=== PATIENT | female | born 1970 | race African-American/Black ===

== ENCOUNTER → 2017-12-24 | Outpatient (CLI) | payer BC ==
[2017-12-24 12:25] LABS: ABSOLUTE EOSINOPHILS # (AUTO) 0.1 10^3/uL (0.0-0.6); ABSOLUTE LYMPHOCYTES (AUTO) 1.5 10^3/uL (0.5-4.7); ABSOLUTE MONOCYTES (AUTO) 0.4 10^3/uL (0.1-1.4); ABSOLUTE NEUT (AUTO) 2.7 10^3/uL (1.7-8.2); BASOPHILS % (AUTO) 0.9 % (0-2); EOSINOPHILS % (AUTO) 2.4 % (0-6); HEMATOCRIT 35.1 % (36.0-47.0); HEMOGLOBIN 11.5 g/dL (12.0-15.5); LYMPHOCYTES % (AUTO) 31.4 % (13-45); MEAN CORPUSCULAR HGB CONC 32.7 g/dL (32.0-36.0); MEAN CORPUSCULAR VOLUME 89 fl (80-97); MONOCYTES % (AUTO) 7.9 % (3-13); PLATELET COUNT 337 10^3/uL (150-450); RED BLOOD COUNT 3.95 10^6/uL (3.72-5.28); RED CELL DISTRIBUTION WIDTH 12.6 % (11.5-14.0); SEGMENTED NEUTROPHILS % (AUTO) 57.4 % (42-78); TOTAL CELLS COUNTED % (AUTO) 100 %; WHITE BLOOD COUNT 4.7 10^3/uL (4.0-10.5)
[2017-12-24 12:43] LABS: ALANINE AMINOTRANSFERASE 24 U/L (9-52); ALBUMIN 4.7 g/dL (3.5-5.0); ALKALINE PHOSPHATASE 48 U/L (38-126); ANION GAP 12 (5-19); ASPARTATE AMINO TRANSFERASE 25 U/L (14-36); BILIRUBIN,DIRECT 0.1 mg/dL (0.0-0.4); BILIRUBIN,TOTAL 0.3 mg/dL (0.2-1.3); BLOOD UREA NITROGEN 13 mg/dL (7-20); CARBON DIOXIDE 26 mmol/L (22-30); CHLORIDE 104 mmol/L (98-107); GLUCOSE 82 mg/dL (75-110); IRON(TIBC) 142.1 ug/dL (37-170); POTASSIUM 4.4 mmol/L (3.6-5.0); SODIUM 141.5 mmol/L (137-145); TOTAL PROTEIN 7.1 g/dL (6.3-8.2)
== END ==
LOC: OD 11:32
PROVIDERS: ATTEND Specialist
DX: D64.9 Anemia, unspecified (principal); D25.9 Leiomyoma of uterus, unspecified; E11.9 Type 2 diabetes mellitus without complications
CPT/HCPCS: 36415; 80053; 83540; 83550; 84443; 85025

== ENCOUNTER → 2019-08-16 | Day surgery (SDC) | payer BC ==
[2019-08-04 09:01] LABS: HEMATOCRIT 34.4 % (36.0-47.0); HEMOGLOBIN 11.2 g/dL (12.0-15.5); MEAN CORPUSCULAR HEMOGLOBIN 29.1 pg (27.0-33.4); MEAN CORPUSCULAR HGB CONC 32.5 g/dL (32.0-36.0); MEAN CORPUSCULAR VOLUME 90 fl (80-97); PLATELET COUNT 313 10^3/uL (150-450); RED BLOOD COUNT 3.84 10^6/uL (3.72-5.28); RED CELL DISTRIBUTION WIDTH 12.9 % (11.5-14.0); WHITE BLOOD COUNT 3.8 10^3/uL (4.0-10.5)
[2019-08-04 09:06] LABS: APPEARANCE,URINE CLEAR; BILIRUBIN,URINE NEGATIVE (NEGATIVE); COLOR,URINE STRAW; GLUCOSE, URINE NEGATIVE (NEGATIVE); KETONES,URINE NEGATIVE (NEGATIVE); LEUKOCYTE ESTERASE,URINE NEGATIVE (NEGATIVE); NITRITE,URINE NEGATIVE (NEGATIVE); PROTEIN,URINE NEGATIVE (NEGATIVE); URINE SPECIFIC GRAVITY 1.008; UROBILINOGEN,URINE NEGATIVE mg/dL (<2.0)
--- NOTE | 2019-08-04 09:16 | EKG REPORT ---
SEVERITY:- NORMAL ECG - SINUS RHYTHM : Confirmed by: Kasia Christensen 04-Aug-2019 09:15:58
[2019-08-04 09:26] LABS: ANION GAP 8 (5-19); BLOOD UREA NITROGEN 14 mg/dL (7-20); CALCIUM 9.8 mg/dL (8.4-10.2); CARBON DIOXIDE 30 mmol/L (22-30); CHLORIDE 102 mmol/L (98-107); POTASSIUM 4.4 mmol/L (3.6-5.0)
[2019-08-04 09:32] LABS: GLUCOSE 61 mg/dL (75-110)
[~2019-08-16] MED LIST: ACETAMINOPHEN 1,000 MG/100 ML RTUPB IV ONE; BUPIVACAINE INJ/PF LIPOSOME/PF 266 MG/20 ML SDV ONE; CLINDAMYCIN 600 MG/D5W RTU 600 MG/50 ML RTUPB IV ONE; CLINDAMYCIN 600 MG/D5W RTU 600 MG/50 ML RTUPB IV PRN; DEXAMETHASONE SOD PHOSPHATE INJ 4 MG/1 ML VIAL ONE; DIPHENHYDRAMINE HCL 50 MG/ML VIAL IV PRN; FAMOTIDINE INJ/PF 20 MG/2 ML SDV IV ONE; FENTANYL CITRATE INJ/PF 100 MCG/2 ML AMPUL IV PRN; FENTANYL CITRATE INJ/PF 100 MCG/2 ML AMPUL ONE; GENTAMICIN SULFATE 60 MG in DEXTROSE 5%-WATER 100 ML IV PRN; GLYCOPYRROLATE 1 MG/5 ML VIAL ONE; HYDROMORPHONE HCL INJ/PF 2 MG/ML AMPULE ONE; IBUPROFEN 800 MG TABLET PO SCH; KETOROLAC TROMETHAMINE 60 MG/2 ML SDV ONE; LIDOCAINE 2% INJ (20 MG/ML) 20 ML MDV ONE; MEPERIDINE HCL/PF INJ 25 MG/1 ML DISP.SYRIN IV PRN; MIDAZOLAM 2 MG/2 ML INJ ONE; MORPHINE INJ 4 MG DOSE (EDIT ROUTE) INJ PRN; MORPHINE INJ 6 MG DOSE (EDIT ROUTE) INJ PRN; MORPHINE INJ 8 MG DOSE IM PRN; MORPHINE SULFATE 10 MG/ML INJ IV PRN; ONDANSETRON HCL INJ/PF 4 MG/2 ML SDV IV PRN; ONDANSETRON HCL INJ/PF 4 MG/2 ML SDV ONE; OXYCODONE-ACETAMINOPHEN 5-325 MG TABLET PO PRN; PROMETHAZINE HCL INJ 25 MG/1 ML VIAL IM PRN; PROMETHAZINE HCL INJ 25 MG/1 ML VIAL ONE; PROPOFOL INJ 200 MG/20 ML VIAL IV ONE; ROCURONIUM BROMIDE INJ 50 MG/5 ML VIAL IV ONE; SCOPOLAMINE HYDROBROMIDE 1.5 MG PATCH.TD72 ONE; SUCCINYLCHOLINE CHLORIDE INJ 200 MG/10 ML VIAL ONE
--- NOTE | 2019-08-16 08:46 | Operative Report ---
Operative Report DATE OF SURGERY: 08/16/19 PREOPERATIVE DIAGNOSIS: Uterine leiomyoma POSTOPERATIVE DIAGNOSIS: Same OPERATION: Supracervical hysterectomy bilateral salpingectomy SURGEON: CORRY WESLEY ANESTHESIA: GA TISSUE REMOVED OR ALTERED: Uterus and tubes COMPLICATIONS: None ESTIMATED BLOOD LOSS: 75 mL's INTRAOPERATIVE FINDINGS: 18 to 20 weeks size uterus normal ovaries left corpus luteum cyst normal appendix cervix and left in situ PROCEDURE: Indication for procedure the patient has symptomatic uterine leiomyoma and desire to attempt a definitive therapy. The usual risks of bleeding infection and anesthesia been discussed the patient understood. Patient also understands her risk of damage to other organs including bowel and bladder Procedure patient taken operating room and after surgical timeout performed a EUA performed was prepped and draped in a usual manner for a hysterectomy through midline incision. Bladder was drained sterile technique and abdomen entered through a midline incision extending to the subcutis fat and fascia the peritoneum was then without difficulty and the uterus was exteriorized in the operative field. The utero-ovarian ligament was identified and cauterized using LigaSure advanced device bilaterally after the round ligaments of been identified and bladder flap developed and reflected inferiorly. The tubes were removed from the mesosalpinx and continued on with the specimen. Advancement of the dissection continued to have the uterine vessels which were cauterized and free tied this level of the cervix was noted to be well down into the pelvis proper there is elected to proceed with soup supracervical hysterectomy. The cervix was amputated and oversewn with #1 chromic catgut as is usual throughout the case. This aspect of the procedure good hemostasis was noted bladder was well out of the operative field ureters were noted to be well out of the operative field abdomen was copiously irrigated and Exparel was used for total of 20 mL's in the subfascial area. The fascia was then closed with double-stranded PDS suture and the skin approximated skin ki. The completion of procedure all sponge needle instrument counts were correct the patient was taken recovery room stable condition
[2019-08-16] MEDS: RINGERS SOLUTION,LACTATED 1,000 ML IV PRN ×2 (12:59→23:03)
[2019-08-16] MEDS: IBUPROFEN 800 MG TABLET PO SCH ×2 (15:00→21:30)
[2019-08-17] MEDS: IBUPROFEN 800 MG TABLET PO SCH (05:10)
[2019-08-17 08:20] VITALS: BP 111/62
[2019-08-17 08:26] LABS: HEMATOCRIT 33.6 % (36.0-47.0); MEAN CORPUSCULAR HEMOGLOBIN 29.3 pg (27.0-33.4); MEAN CORPUSCULAR HGB CONC 32.7 g/dL (32.0-36.0); MEAN CORPUSCULAR VOLUME 90 fl (80-97); PLATELET COUNT 296 10^3/uL (150-450); RED BLOOD COUNT 3.75 10^6/uL (3.72-5.28); RED CELL DISTRIBUTION WIDTH 12.9 % (11.5-14.0); WHITE BLOOD COUNT 9.4 10^3/uL (4.0-10.5)
== END ==
LOC: INTOOBSV 05:23 → UNDOADMOB 05:23 → INOR 05:23 → EDSTATUS 07:15 → INOR 10:10 → 2S 10:10 → ASU 9 10:47 → UNDODISOB 08-17 08:35
PROVIDERS: ATTEND Specialist
DX: D25.1 Intramural leiomyoma of uterus (principal); D25.2 Subserosal leiomyoma of uterus; N80.0 Endometriosis of uterus; D64.9 Anemia, unspecified
CPT/HCPCS: 93005; 86900; 86901; 36415 ×3; 86850; 85027 ×2; 81025; 80048; 81001; 88307 ×2; 94799; 93010; 00840; 58180; J2250; J3490 ×3; J1100; J1885; J1580; J1170; J0330; J2405; J7060; J7120; J2704; S0028; J0131; C9290; 840; J2550; J3010

== ENCOUNTER → 2020-09-04 | Outpatient (CLI) | payer BC ==
--- NOTE | 2020-09-04 11:21 | RADIOLOGY REPORT (SQ) ---
EXAM DESCRIPTION: CT ABD/PELVIS NO ORAL OR IV IMAGES COMPLETED DATE/TIME: 09/04/2020 8:11 am REASON FOR STUDY: URINARY TRACT INFECTION, SITE NOT SPECIFIED N39.0 URINARY TRACT INFECTION, SITE N OT SPECIFIED COMPARISON: Pelvic ultrasound 05/30/2019 TECHNIQUE: CT scan of the abdomen and pelvis performed without intravenous or oral contrast. Images reviewed with lung, soft tissue, and bone windows. Reconstructed coronal and sagittal MPR images revi ewed. All images stored on PACS. All CT scanners at this facility use dose modulation, iterative reconstruction, and/or weight based d osing when appropriate to reduce radiation dose to as low as reasonably achievable (ALARA). [facility]: Dose Right [facility]: CareDose [facility]: Dose Right [facility]: Teradose 4D [facility]: Smart SampalRx RADIATION DOSE: CT Rad equipment meets quality standard of care and radiation dose reduction techniq ues were employed. CTDIvol: 5.9 mGy. DLP: 278 mGy-cm.mGy. LIMITATIONS: None. FINDINGS: LOWER CHEST: No significant findings. No nodules or infiltrates. NON-CONTRASTED LIVER, SPLEEN, ADRENALS: Evaluation limited by lack of IV contrast. No identified sign ificant masses. PANCREAS: No masses. No peripancreatic inflammatory changes. GALLBLADDER: No identified stones by CT criteria. No inflammatory changes to suggest cholecystitis. RIGHT KIDNEY AND URETER: No suspicious masses. Assessment limited by lack of IV contrast. No signif icant calcifications. No hydronephrosis or hydroureter. LEFT KIDNEY AND URETER: No suspicious masses. Assessment limited by lack of IV contrast. No signifi cant calcifications. No hydronephrosis or hydroureter. AORTA AND RETROPERITONEUM: No aneurysm. No retroperitoneal masses or adenopathy. BOWEL AND PERITONEAL CAVITY: No obvious masses or inflammatory changes. No free fluid. APPENDIX: Normal. PELVIS, BLADDER, AND ABDOMINAL WALL:No abnormal masses. No free fluid. Bladder normal. Post hysterec stacey, normal size ovaries BONES: No significant findings. OTHER: No other significant finding. IMPRESSION: NO SIGNIFICANT OR ACUTE PROCESS IN THE ABDOMEN OR PELVIS. COMMENT: Quality ID # [id number]: Final reports with documentation of one or more dose reduction techniques (e.g., Automated exposure control, adjustment of the mA and/or kV according to patient size, use of iterative reconstruction technique) TECHNICAL DOCUMENTATION: JOB ID: [id number] [employer]- All Rights Reserved Reading location - IP/workstation name: [email or web address]
== END ==
LOC: RAD 07:27
PROVIDERS: ATTEND Urology
DX: N39.0 Urinary tract infection, site not specified (principal)
CPT/HCPCS: 74176

== ENCOUNTER → 2020-11-22 | Outpatient (CLI) | payer BC ==
[2020-11-22 12:27] VITALS: BP 107/68
--- NOTE | 2020-11-22 12:27 | ER [facility] ASSESSMENT REPORT ---
Intake - In the Last 14 days Have you traveled outside [place]?: No Have you been in close contact with someone CONFIRMED: No Worked in Healthcare?: Yes - Symptoms Subjective Fever(Redmon feverish): Yes Chills: Yes Muscule Aches: Yes Runny Nose: No Sore Throat: No Cough (New or worsening chronic cough): Yes Shortness of breath: No Nausea or Vomiting: No Headache: Yes Abdominal Pain: No Diarrhea(3 or more loose stools in last 24 hours): No - Do you have any of the following Chronic lung disease: Asthma or emphysema or COPD: No Cystic Fibrosis: No Diabetes: No High Blood Pressure: No Cardiovascular Disease: No Chronic Kidney Disease: No Chronic Liver Disease: No Chronic blood disorder like Sickle Cell Disease: No Weak immune system due to disease or medication: No Neurologic condition that limits movement: No Developmental delay - Moderate to Severe: No Recent (within past 2 weeks) or current : No Morbid Obesity (>100 pounds over ideal weight): No - Objective Temperature: 98.2 F Pulse Rate: 93 Respiratory Rate: 17 Blood Pressure: 107/68 O2 Sat by Pulse Oximetry: 99 Objective: Given above, testing performed: If Testing Performed: Test Specimen Type Sent to General - General Information source: Patient Notes: Patient presents to the [facility] for screening for the coronavirus. Patient's had fever chills, body aches, cough and headache for the past 2 days. Patient does work in healthcare. - Related Data Allergies/Adverse Reactions: Penicillins Allergy (Severe, Verified 08/16/19 06:11) Past Medical History - General Information source: Patient - Social History Smoking Status: Never Smoker - Medical History Medical History: Negative Renal/ Medical History: Denies: Hx Ovarian Cysts, Hx Pelvic Inflammatory Disease Malignancy Medical History: Denies: Hx Breast Cancer, Hx Cervical Cancer, Hx Leukemia, Hx Ovarian Cancer Infectious Medical History: Denies: Hx HIV Past Surgical History: Reports: Hx Section, Hx Hysterectomy Physical Exam - Notes Notes: The patient was evaluated during the global Covid 19 pandemic, and that diagnosis was suspected/considered upon their initial presentation. Their evaluation and testing was consistent with current guidelines for patients who present with complaints or symptoms that may be related to Covid 19. Full physical exam could not be performed due to covid 19 isolation protocols. Constitutional: Nontoxic appearance, no acute distress Eyes: Nonicteric, sclera clear ENT posterior pharynx without exudate: Cardiovascular: Heart rate and rhythm regular, no JVD Respiratory: Nonlabored breathing, no use of accessory muscles, no tachypnea Gastrointestinal: Abdomen not distended Muculoskeletal: Moves all extremities well Skin: Normal color Neuro: Awake alert oriented, normal speech Psych: Normal mood and affect Diagnostic Results Laboratory Results: Patient presents with symptoms worrisome for possible Covid 19. Patient does not have emergency worrying symptoms such as difficulty breathing, shortness of breath, chest pain, pressure, confusion or cyanosis. Patient appears suitable for discharge as they are not of an advanced age, do not have any chronic medical conditions such as diabetes, CAD, immune deficiency, chronic lung disease or chronic kidney disease. Patient's vital signs are stable and patient is nontoxic in appearance. Good return precautions have been discussed with patient, patient verbalized understanding and is agreeable with discharge plan of care at this time. Patient Education/Counseling Counseling/Education: Patient was provided with discharge information including: As a person under investigation for Covid 19, the [facility] and Human Services, division of public health advises you to adhere to the following guidance until your test results are reported to you. If your test result is positive, you will receive additional information from your provider and your local health department at that time. Remain at home until you are cleared by the health provider or public health authorities. Keep a log of visitors to your home, notify any visitors to your home of your isolation status. If you plan to move to a new address or leave the [facility], notify the local health department in your County. Call your doctor or seek care if you have an urgent medical need. Before seeking medical care, call ahead to get instructions from the provider before arriving at the medical office clinic or hospital. Notify them that you are being tested for the virus that causes Covid 19 so that arrangements can be made, as necessary, to prevent transmission to others in the healthcare setting. Next, notify the local health department in your county. If a medical emergency arises and you need to call 911, inform the first responders that you are being tested for the virus that causes Covid 19. Next, notify the local health department in your county. [facility] Discharge - Discharge Clinical Impression: Encounter for screening for COVID-19 Condition: Stable Disposition: Home; Selfcare
[2020-11-22 13:53] LABS: A TYPE INFLUENZA AG NEGATIVE (NEGATIVE); B INFLUENZA AG NEGATIVE (NEGATIVE)
== END ==
LOC: RDC 11:25
PROVIDERS: ATTEND Nurse Practitioner Family
DX: U07.1 COVID-19 (principal); R50.9 Fever, unspecified; R05 Cough; M79.10 Myalgia, unspecified site; R51.9 Headache, unspecified; Z88.0 Allergy status to penicillin
CPT/HCPCS: 87070; 87880; 87804; 99202; 99211; U0003; C9803; 87635